=== PATIENT | female | born 1985 | race Hispanic/Latino ===

== ENCOUNTER 2018-02-14 09:26 | Outpatient (CLI) | payer OTHER | END 2018-02-14 09:27 | disposition home or self-care (01) | LOC: BICULT 09:26 → EDSTATUS 09:30 | PROVIDERS: ATTEND Physician Assistant | DX: N92.6 Irregular menstruation, unspecified (principal) | CPT/HCPCS: 76856; 93976 ==

== ENCOUNTER 2019-05-31 03:02 | Inpatient (IN) | payer MEDICAID, OTHER, SELFPAY ==
--- NOTE | 2019-05-30 13:30 | PDOC.LDHP ---
Labor and Delivery H&P Chief complaint: scheduled induction HPI: 34 yo @ 37w1d by 16 week sono who presents for IOL due to FGR (5%). 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 MCA dopplers wnl. Due date: 06/20/19 Dating criteria: second trimester ultrasound Grav: 5 Para: 4 OB History Details: 3 term SVDs 1 @ 36 weeks due to oligohydramnios and FGR Current complications: IUGR Abnormal US findings: No Past Medical History: Denies Current medications: pre- vitamins Allergies/Adverse Reactions: Allergies Allergy/AdvReac Type Severity Reaction Status Date / Time No Known Allergies Allergy Verified 05/31/19 03:29 Social history: none - Physical Exam Vital signs reviewed and normal: yes General: NAD Heart: RRR Lungs: nonlabored breathing Abdomen: gravid Extremeties: no edema FHT: category 1 [place] contractions every: q2-4 min - Vaginal Exam cm dilated: 4 (cephalic, attempted AROM- scant ) Effacement: 50% Station: -2 - OB Labs RH: positive Antibody Screen: positive (Antie- E, titer 1:2) HIV: negative RPR: negative HEPSAg: negative 1 hour GCT: negative GBS: positive Urine drug screen: negative Rubella: immune Additional Labs: AFP tetra and carrier screening wnl FGR work up wnl - Assessment 37w1d IUP FGR (5%) Anti-E antibody GBS+ IOL - Plan Plan: admit to L&D, GBS antibiotic prophylaxis, informed consent obtained, anesthesia consult for pain management -: Started pitocin Attempted AROM, however, scant. Will reattempt after epidural if not AROM.
[2019-05-31 03:39] VITALS: BMI 21.2
[2019-05-31] MEDS ORDERED: Carboprost 250 MCG/ML AMP IM PRN (03:49)
[2019-05-31] MEDS ORDERED: hydrALAZINE 20 MG/ML VIAL SLOW IVP PRN ×2 (03:49→15:13)
[2019-05-31] MEDS ORDERED: Butorphanol Tartrate 1 MG/ML VIAL SLOW IVP PRN (03:49)
[2019-05-31] MEDS ORDERED: Diphenoxylate HCl/Atropine Tablet PO PRN (03:49)
[2019-05-31] MEDS ORDERED: Methylergonovine 0.2 MG/ML VIAL IM PRN (03:49)
[2019-05-31] MEDS ORDERED: Acetaminophen 500 MG TAB PO PRN (03:49)
[2019-05-31] MEDS ORDERED: Ondansetron PF 4 MG/2 ML Vial IVP PRN ×2 (03:49→09:34)
[2019-05-31] MEDS ORDERED: HYDROcodone/Acetaminophen 5/325 mg Tablet PO PRN ×2 (03:49→15:13)
[2019-05-31] MEDS ORDERED: Promethazine HCl 25 MG/ML VIAL IM PRN ×2 (03:49→09:34)
[2019-05-31] MEDS ORDERED: Lidocaine 1% (PF) 30 ML VIAL SC PRN (03:49)
[2019-05-31] MEDS ORDERED: Ibuprofen 800 MG TAB PO PRN (03:49)
[2019-05-31] MEDS: Lactated Ringer's 1,000 ML IV SCH ×3 (03:58→16:19)
[2019-05-31] MEDS ORDERED: NS / Oxytocin 40 units/1000ml 1,000 ML IV PRN (04:00)
[2019-05-31] MEDS ORDERED: Penicillin G Potassium 5 MILL.UNITS in Sodium Chloride 0.9% 100 ML IVPB SCH (04:00)
[2019-05-31 04:17] LABS: Hemoglobin 13.4 g/dL (12.0-16.0); Mean Corpuscular HGB CONC 33.8 g/dL (32.0-36.0); Mean Corpuscular Volume 91.8 fL (78.0-98.0); Mean Platelet Volume 10.4 fL (7.4-10.4); Platelet Count 178 thou/uL (130-400); RBC Distribution Width 12.3 % (11.5-14.5); Red Blood Cell (RBC) Count 4.32 mill/uL (4.20-5.40); White Blood Cell (WBC) Count 8.4 thou/uL (4.8-10.8)
[2019-05-31 04:55] LABS: HBSAg Index 0.13 S/CO (0-0.99); HIV (1/2) Antibody/Antigen Non-Reactive (NonReactive); HIV 1/2 INDEX 0.07 S/CO (<1.00); Hep B Surf Ag Non-Reactive S/CO (NonReactive)
[2019-05-31 05:15] LABS: Syphilis Antibody Nonreactive (Nonreactive); Syphilis Antibody Index 0.19 S/CO (<1.00 Non-Reactive)
[2019-05-31] MEDS: NS w/ Oxytocin 10 units 500 ML IV SCH (05:59)
[2019-05-31] MEDS: Penicillin G 2.5 MILL.units 2.5 MILL.UNITS in Premix Bag 1 BAG IVPB SCH ×2 (08:01→16:19)
[2019-05-31] MEDS ORDERED: Fentanyl 4 mcg/Bup 0.1% Cadd 100 ML ONE (08:06)
[2019-05-31] MEDS ORDERED: Fentanyl 100 MCG/2 ML VIAL ONE (08:43)
[2019-05-31] MEDS ORDERED: Lactated Ringer's 500 ML IV PRN (09:34)
[2019-05-31] MEDS ORDERED: diphenhydrAMINE 50 MG/ML VIAL IVP PRN (09:34)
[2019-05-31] MEDS ORDERED: ePHEDrine/0.9% NaCl/PF SYRINGE 50 mg/10 ml SLOW IVP PRN (09:34)
[2019-05-31] MEDS ORDERED: Naloxone HCl 0.4 mg/ml Vial IVP PRN ×2 (09:34)
[2019-05-31] MEDS ORDERED: Acetaminophen 325 MG TAB PO PRN (09:34)
[2019-05-31] MEDS ORDERED: Communication Order-Pharmacy FS PRN (09:45)
[2019-05-31] MEDS ORDERED: Fentanyl 4 mcg/Bupivacaine 0.1% Cassette 100 ML EPIDURAL SCH (09:45)
--- NOTE | 2019-05-31 12:20 | PDOC.OPDEL ---
OB Operative/Delivery Note Delivery Dr/Surgeon: Dahiana Manzo DO Pre-Delivery Diagnosis: medically indicated induction Procedure/Post Delivery Dx: spontaneous vaginal delivery Weeks gestation: 37 Anesthesia: epidural - Findings A Sex: female - 1 min: 6 - 5 min: 9 - Additional Findings/Plan Placenta delivered: spontaneous Repaired Obstetrical Laceration: 1st degree Estimated blood loss: QBL 538 cc Compilations/Other Findings: in LOT position, rotated to KENDAL at delivery Normal appearing placenta. weight pending, FGR prior to delivery Post delivery plan: routine recovery
[2019-05-31] MEDS ORDERED: Benzocaine-Menthol 82.5 ML CAN TOP PRN (15:13)
[2019-05-31] MEDS ORDERED: NS / Oxytocin 40 units/1000ml 1,000 ML IV SCH (15:13)
[2019-05-31] MEDS ORDERED: Preparation H Ointment 28 GM TUBE PR PRN (15:13)
[2019-05-31] MEDS ORDERED: Milk Of Magnesia 30 ML UDCUP PO PRN (15:13)
[2019-05-31] MEDS ORDERED: diphenhydrAMINE 25 MG CAP PO PRN (15:13)
[2019-05-31] MEDS ORDERED: Bisacodyl 10 MG SUPP PR PRN (15:13)
[2019-05-31] MEDS ORDERED: Misoprostol 200 MCG TAB VAG PRN (15:13)
[2019-05-31] MEDS: Ibuprofen 800 MG TAB PO SCH ×2 (15:56→23:37)
[2019-05-31] MEDS: Ferrous Sulfate 325 MG TAB PO SCH (16:18)
[2019-05-31] MEDS: Docusate Calcium (SURFAK) 240 MG CAP PO SCH (23:37)
[2019-05-31] MEDS ORDERED: Sodium Chloride 0.9% 10 ML ONE (23:46)
[2019-06-01 05:32] LABS: Hemoglobin 10.3 g/dL (12.0-16.0); Mean Corpuscular HGB CONC 34.2 g/dL (32.0-36.0); Mean Corpuscular Hemoglobin 31.3 pg (27.0-31.0); Mean Corpuscular Volume 91.5 fL (78.0-98.0); Mean Platelet Volume 9.4 fL (7.4-10.4); Platelet Count 137 thou/uL (130-400); RBC Distribution Width 12.3 % (11.5-14.5); Red Blood Cell (RBC) Count 3.28 mill/uL (4.20-5.40); White Blood Cell (WBC) Count 11.2 thou/uL (4.8-10.8)
[2019-06-01] MEDS: NS w/ Oxytocin 10 units 500 ML IV SCH (05:41)
[2019-06-01] MEDS: Ibuprofen 800 MG TAB PO SCH ×3 (06:29→21:25)
[2019-06-01] MEDS: Ferrous Sulfate 325 MG TAB PO SCH ×2 (07:38→13:45)
--- NOTE | 2019-06-01 07:38 | PDOC.PP ---
Post Progress Note Post Day #: 1 Subjective: No concerns. Doing well. Breast feeding. PO intake tolerated: yes Flatus: yes Ambulation: yes Vital Signs (12 hours) Temp Pulse Resp BP 06/01/19 05:38 98.1 F 61 16 133/74 05/31/19 23:44 98.0 F 59 L 16 124/58 L Weight Weight 116 lb - Physical Examination General: NAD Cardiovascular: RRR Respiratory: non-labored breathing Abdominal: no distention, appropriately TTP Fundus firm & at: below umbilicus Extremities: negative homans (B) Neurological: no gross focal deficits Psychiatric: A&Ox3, normal affect Result Diagrams: 06/01/19 05:08 Additional Labs: Post Labs Blood Type O POSITIVE 05/31/19 06:48 Hep Bs Antigen Non-Reactive S/CO (NonReactive) 05/31/19 04:00 (1) Vaginal delivery Code(s): O80 - ENCOUNTER FOR FULL-TERM UNCOMPLICATED DELIVERY Status: Acute (2) Anemia Code(s): D64.9 - ANEMIA, UNSPECIFIED Status: Acute Qualifiers: Other causes of anemia: acute posthemorrhagic - Assessment/Plan PPD1 VSSAF Mild anemia, Fe supplement. Continue PP care. D/C when ready for d/c
[2019-06-01] MEDS: Docusate Calcium (SURFAK) 240 MG CAP PO SCH ×2 (09:28→21:25)
[2019-06-02] MEDS: Ibuprofen 800 MG TAB PO SCH (06:26)
[2019-06-02 08:07] VITALS: BP 116/62; TEMP 98.2
--- NOTE | 2019-06-02 08:28 | PDOC.PP ---
Post Progress Note Post Day #: 2 Subjective: No concerns. Minimal pain and lochia. breast feeding. PO intake tolerated: yes Flatus: yes Ambulation: yes Vital Signs (12 hours) Temp Pulse Resp BP Pulse Ox 06/02/19 08:06 98.2 F 65 20 116/62 98 06/02/19 07:30 98 06/02/19 02:40 97.8 F 70 18 102/64 06/01/19 21:14 98.4 F 108 H 20 114/57 L 95 Weight Weight 116 lb - Physical Examination General: NAD Cardiovascular: RRR Respiratory: non-labored breathing Abdominal: no distention, appropriately TTP Fundus firm & at: below umbilicus Extremities: negative homans (B) Neurological: no gross focal deficits Psychiatric: A&Ox3, normal affect Result Diagrams: 06/01/19 05:08 Additional Labs: Post Labs Blood Type O POSITIVE 05/31/19 06:48 Hep Bs Antigen Non-Reactive S/CO (NonReactive) 05/31/19 04:00 (1) Vaginal delivery Code(s): O80 - ENCOUNTER FOR FULL-TERM UNCOMPLICATED DELIVERY Status: Acute (2) Anemia Code(s): D64.9 - ANEMIA, UNSPECIFIED Status: Acute Qualifiers: Other causes of anemia: acute posthemorrhagic - Assessment/Plan PPD2 VSSAF Plan for d/c home today
[2019-06-02] MEDS: Docusate Calcium (SURFAK) 240 MG CAP PO SCH (08:41)
[2019-06-02] MEDS: Ferrous Sulfate 325 MG TAB PO SCH (08:43)
[2019-06-02] MEDS: NS w/ Oxytocin 10 units 500 ML IV SCH (12:27)
== END 2019-06-02 12:35 | disposition home or self-care (01) | DRG 806 ==
LOC: L&D 03:02 → 3SW 15:11
PROVIDERS: ADMIT Obstetrics & Gynecology; ATTEND Obstetrics & Gynecology
PROC: 10E0XZZ Delivery of Products of Conception, External Approach (ICD-10-PCS; principal; 2019-05-31)
PROC: 3E033VJ Introduction of Other Hormone into Peripheral Vein, Percutaneous Approach (ICD-10-PCS; 2019-05-31)
PROC: 10907ZC Drainage of Amniotic Fluid, Therapeutic from Products of Conception, Via Natural or Artificial Opening (ICD-10-PCS; 2019-05-31)
PROC: 0HQ9XZZ Repair Perineum Skin, External Approach (ICD-10-PCS; 2019-05-31)
DX: O36.5930 Maternal care for other known or suspected poor fetal growth, third trimester, not applicable or unspecified (principal); D62 Acute posthemorrhagic anemia; Z37.0 Single live birth; Z3A.37 37 weeks gestation of pregnancy; O99.824 Streptococcus B carrier state complicating childbirth; O70.0 First degree perineal laceration during delivery; O90.81 Anemia of the puerperium
CPT/HCPCS: 36415; 51702; 82805; 85027; 86780; 86850; 86870; 86900; 86901; 86905; 86922; 87340; 87389; 88307; J2001; J2540; J2590; J3010; J3490